=== PATIENT | female | born 1995 | race Caucasian/White ===

== ENCOUNTER 2018-04-07 23:48 | Emergency (ER) | payer SELFPAY ==
[2018-04-08 01:01] LABS: Amphetamine Screen,Urine PRESUMPTIVE NEGATIVE; Benzodiazepines Screen,Urine PRESUMPTIVE NEGATIVE; Cannabinoid Screen,Urine PRESUMPTIVE NEGATIVE; Cocaine Screen,Urine PRESUMPTIVE NEGATIVE; Methadone Screen,Urine PRESUMPTIVE NEGATIVE; Opiate Screen,Urine PRESUMPTIVE NEGATIVE
[2018-04-08 01:04] LABS: Bilirubin,Urine NEG (Negative); Blood,Urine LG (Negative); Color,Urine Yellow (Yellow); Mucus,Urine FEW /HPF; Protein,Urine <15 mg/dL mg/dL (Negative); Urobilinogen,Urine < 2.0 mg/dL (<2.0)
[2018-04-08 01:21] LABS: Basophils # (Auto) 0.1 K/mm3 (0.0-0.1); Basophils % (Auto) 0.9 % (0.0-1.8); Eosinophils # (Auto) 0.1 K/mm3 (0.0-0.4); Eosinophils % (Auto) 1.3 % (0.0-4.3); Hemoglobin 11.9 gm/dl (10.1-14.3); Lymphocytes # (Auto) 2.8 K/mm3 (1.2-5.4); Lymphocytes % (Auto) 25.4 % (13.4-35.0); Mean Corpuscular HGB Conc 33 % (30-34); Mean Corpuscular Hemoglobin 30 pg (28-32); Mean Corpuscular Volume 89 fl (79-97); Monocytes # (Auto) 0.9 K/mm3 (0.0-0.8); Monocytes % (Auto) 7.9 % (0.0-7.3); Platelet Count 266 K/mm3 (140-440); Red Blood Count 4.03 M/mm3 (3.65-5.03); Red Cell Distribution Width 13.5 % (13.2-15.2)
[2018-04-08 01:38] LABS: BUN/Creatinine Ratio 23; Blood Urea Nitrogen 14 mg/dL (7-17); Calcium 9.5 mg/dL (8.4-10.2); Hemolysis Index 33
--- NOTE | 2018-04-08 01:55 | Emergency Department Report ---
HPI - General Chief Complaint: Psych Time Seen by Provider: 04/08/18 00:14 - HPI HPI: 22-year-old female presents to the emergency department via EMS with a complaint of auditory and visual hallucinations. She denies any suicidal or homicidal ideations. She says that she hears some random tapping sounds and occasionally some voices but they do not say anything specifically to her. In terms of her visual hallucinations, she says that sometimes she can see faces in her pillow. The patient is awake, alert and oriented. She has a history of polar disorder, schizophrenia and a personality disorder. She says she has been taking Risperdal for the past few years. She recently was started on an antidepressant as well but says she was not taking that compliantly. She has psychiatric follow-up through the [facility]. ED Past Medical Hx - Past Medical History Previous Medical History?: Yes Hx Psychiatric Treatment: Yes Additional medical history: bipolar, schizophernia - Surgical History Past Surgical History?: No - Social History Smoking Status: Never Smoker Substance Use Type: None - Medications Home Medications: Home Medications Medication Instructions Recorded Confirmed Last Taken Type Nitrofurantoin Monohyd/M-Cryst 100 mg PO BID #14 capsule 04/08/18 Unknown Rx [Macrobid 100 mg Capsule] ED Review of Systems ROS: Stated complaint: MH EVAL/HEARING VOICES Other details as noted in HPI Comment: All other systems reviewed and negative Constitutional: denies: chills, fever Eyes: denies: eye pain, eye discharge, vision change ENT: denies: ear pain, throat pain Respiratory: denies: cough, shortness of breath, wheezing Cardiovascular: denies: chest pain, palpitations Gastrointestinal: denies: abdominal pain, nausea, diarrhea Genitourinary: denies: urgency, dysuria, discharge Musculoskeletal: denies: back pain, joint swelling, arthralgia Skin: denies: rash, lesions Neurological: denies: headache, weakness, paresthesias Psychiatric: auditory hallucinations, visual hallucinations. denies: homicidal thoughts, suicidal thoughts Physical Exam - Physical Exam Vital Signs: Vital Signs 04/08/18 00:15 Temperature 97.6 F Pulse Rate 85 Respiratory 17 Rate Blood Pressure 100/74 O2 Sat by Pulse 99 Oximetry Physical Exam: GENERAL: The patient is well-developed well-nourished. HENT: Normocephalic. Atraumatic. Patient has moist mucous membranes. EYES: Extraocular motions are intact. Pupils equal reactive to light bilaterally. NECK: Supple. Trachea is midline. CHEST/LUNGS: Clear to auscultation. There is no respiratory distress noted. HEART/CARDIOVASCULAR: Regular. There is no tachycardia. There is no murmur. ABDOMEN: Abdomen is soft, nontender. Patient has normal bowel sounds. There is no abdominal distention. SKIN: Skin is warm and dry. NEURO: The patient is awake, alert, and oriented. The patient is cooperative. The patient has no focal neurologic deficits. The patient has normal speech. Cranial nerves II through XII grossly intact. MUSCULOSKELETAL: There is no tenderness or deformity. There is no limitation range of motion. There is no evidence of acute injury. ED Course Vital Signs 04/08/18 00:15 Temperature 97.6 F Pulse Rate 85 Respiratory 17 Rate Blood Pressure 100/74 O2 Sat by Pulse 99 Oximetry ED Medical Decision Making - Lab Data Result diagrams: 04/08/18 00:41 04/08/18 00:41 - Medical Decision Making The patient presents with auditory and visual hallucinations, which she says that she does have chronically but does have become more "weird." She denies any suicidal or homicidal ideations. She is currently awake, alert, oriented, calm and appropriate. Patient was seen by the psych tool sharpener, Delfino, who got the same story and agrees that the patient does not appear to be a candidate to be made a 1013 or to require involuntary inpatient psychiatric treatment. The patient has good follow-up with the psychiatric team through [facility]. She appears safe for discharge home at this time but has been instructed to follow- up with the psychiatric team tomorrow or any of the outpatient psychiatric referrals that she has been given. She has also been instructed to return to the emergency department if there is any worsening of her symptoms, thoughts of harming herself or others, or with any acute distress. Her medical clearance workup has been mostly unremarkable except for a urinary tract infection seen on urinalysis. She has been started on antibiotics for this. Vital signs stable throughout her ED course. - Differential Diagnosis schizophrenia, bipolar disorder, schizoaffective, substance abuse Critical Care Time: No Critical care attestation.: If time is entered above; I have spent that time in minutes in the direct care of this critically ill patient, excluding procedure time. ED Disposition Clinical Impression: Hallucinations, History of bipolar disorder, History of schizophrenia UTI (urinary tract infection) Qualifiers: Urinary tract infection type: acute cystitis Hematuria presence: with hematuria Qualified Code(s): N30.01 - Acute cystitis with hematuria Disposition: TO HOME OR SELFCARE Is pt being admited?: No Condition: Stable Instructions: Urinary Tract Infection in Women (ED), Bipolar Disorder (ED), Schizophrenia (ED) Additional Instructions: Please follow-up with your psychiatric physician tomorrow or any of these psychiatric referrals that were given to this evening. Continue with your medications. Return to the emergency Department with any worsening of your symptoms, thoughts of harming yourself or others, or with any acute distress. Prescriptions: Nitrofurantoin Monohyd/M-Cryst [Macrobid 100 mg Capsule] 100 mg PO BID #14 capsule Referrals: PRIMARY CAREMD [Primary Care Provider] - [facility] Time of Disposition: 01:55
[2018-04-08 02:58] VITALS: BP 100/67
== END 2018-04-08 02:03 | disposition home or self-care (01) ==
LOC: ED 23:48
DX: N39.0 Urinary tract infection, site not specified (principal); F31.9 Bipolar disorder, unspecified; F20.9 Schizophrenia, unspecified
CPT/HCPCS: 36415; 80048; 80307; 81001; 84703; 85025; 99284; G0480; 80320